=== PATIENT | female | born 1955 | race Two or more races ===

== ENCOUNTER 2016-04-04 14:44 | Emergency (ER) | payer MEDICAID ==
[~2016-04-04] VITALS: Ht 157.5 cm; Wt 71.2 kg
[2016-04-04 14:48] VITALS: BP 137/68
== END 2016-04-04 15:20 | disposition home or self-care (01) ==
LOC: ER 14:47
DX: L30.9 Dermatitis, unspecified (principal); I10 Essential (primary) hypertension; Z76.0 Encounter for issue of repeat prescription
CPT/HCPCS: A4606; Z7502; Z7610

== ENCOUNTER 2016-05-30 14:19 | Emergency (ER) | payer MEDICAID ==
[~2016-05-30] VITALS: Ht 157.5 cm; Wt 59.0 kg
[2016-05-30 14:31] VITALS: BP 111/75
== END 2016-05-30 16:41 | disposition home or self-care (01) ==
LOC: ER 14:23
DX: T78.49XA Other allergy, initial encounter (principal); J30.2 Other seasonal allergic rhinitis; I10 Essential (primary) hypertension; X58.XXXA Exposure to other specified factors, initial encounter
CPT/HCPCS: A4606; Z7610

== ENCOUNTER 2016-07-16 15:04 | Emergency (ER) | payer MEDICAID ==
[~2016-07-16] VITALS: Ht 165.1 cm; Wt 71.2 kg
[2016-07-16 15:04] VITALS: BP 145/74
[2016-07-16] MEDS ORDERED: AMLO10TA2 PO (15:19)
[2016-07-16] MEDS ORDERED: PROP10TA10 PO (15:19)
[2016-07-16] MEDS ORDERED: ALEN70TA3 GT (15:19)
== END 2016-07-16 15:48 | disposition home or self-care (01) ==
LOC: ER 15:06
DX: K21.9 Gastro-esophageal reflux disease without esophagitis (principal); I10 Essential (primary) hypertension; E78.00 Pure hypercholesterolemia, unspecified; M81.0 Age-related osteoporosis without current pathological fracture; Z90.710 Acquired absence of both cervix and uterus
CPT/HCPCS: 99283; A4606; Z7610

== ENCOUNTER 2016-07-25 16:07 | Emergency (ER) | payer MEDICAID ==
[~2016-07-25] VITALS: Ht 157.5 cm; Wt 55.3 kg
[2016-07-25 16:07] VITALS: BP 160/69
[~2016-07-25 16:07] MED LIST: ALEN70TA3 GT; AMLO10TA2 PO; PROP10TA10 PO
[2016-07-25] MEDS ORDERED: ACETAMINOPHEN ES 500 MG TABLET PO ONE (17:30)
== END 2016-07-25 18:03 | disposition home or self-care (01) ==
LOC: ER 16:08
DX: M54.42 Lumbago with sciatica, left side (principal); Z76.0 Encounter for issue of repeat prescription; I10 Essential (primary) hypertension; K21.9 Gastro-esophageal reflux disease without esophagitis; Z90.710 Acquired absence of both cervix and uterus
CPT/HCPCS: 99283; A4606; Z7610

== ENCOUNTER 2016-10-01 15:13 | Emergency (ER) | payer MEDICAID ==
[~2016-10-01] VITALS: Ht 157.5 cm; Wt 71.2 kg
[2016-10-01 15:13] VITALS: BP 174/97
== END 2016-10-01 16:57 | disposition home or self-care (01) ==
LOC: ER 15:15
DX: M25.561 Pain in right knee (principal); I10 Essential (primary) hypertension; K21.9 Gastro-esophageal reflux disease without esophagitis; M81.0 Age-related osteoporosis without current pathological fracture; Z90.710 Acquired absence of both cervix and uterus; X58.XXXA Exposure to other specified factors, initial encounter; Y93.55 Activity, bike riding; Y92.89 Other specified places as the place of occurrence of the external cause; Y99.8 Other external cause status
CPT/HCPCS: 99283; A4606; Z7610